=== PATIENT | female | born 1980 | race Hispanic/Latino ===

== ENCOUNTER 2016-08-15 13:28 | Outpatient (CLI) | payer MEDICAID ==
--- NOTE | 2016-08-15 15:22 | Mammography Report ---
LEFT DIGITAL SCREENING MAMMOGRAM with CAD: 08/15/16 13:28:00 CLINICAL: Routine screening. Personal history of breast cancer status post right mastectomy in 2016. She is in the second trimester of . COMPARISON:08/23/15 FINDINGS: Two routine views of the left breast performed after her abdomen was shielded with lead. The breast is heterogeneously dense, which may obscure small masses.No mass, architectural distortion or suspicious calcifications. IMPRESSION: No mammographic evidence of malignancy. BI-RADS CATEGORY: 1 - - Negative RECOMMENDATION: Routine mammographic screening in one year. ACR BI-RADS MAMMOGRAPHIC CODES: 0 = Needs additional imaging evaluation; 1 = Negative; 2 = Benign; 3 = Probably benign; 4 = Suspicious; 5 = Malignant; 6 = Known biopsy-proven malignancy COMMENT: 1. Dense breast tissue, i.e., adenosis, fibrocystic changes, etc., may obscure an underlying neoplasm. 2. Approximately 10% of cancers are not detected with mammography. 3. A negative mammography report should not delay biopsy if a clinically suspicious mass is present. COMMENT: Patient follow-up letters are generated via our [employer] application.
== END 2016-08-15 13:29 | disposition home or self-care (01) ==
LOC: SPVWC 13:28
PROVIDERS: ATTEND Surgery
DX: R92.8 Other abnormal and inconclusive findings on diagnostic imaging of breast (principal); Z85.3 Personal history of malignant neoplasm of breast; Z90.11 Acquired absence of right breast and nipple
CPT/HCPCS: G0206-LT

== ENCOUNTER 2016-10-24 12:30 | Outpatient (CLI) | payer MEDICAID ==
--- NOTE | 2016-10-24 13:39 | Ultrasound Report ---
LEFT BREAST ULTRASOUND: 10/24/16 12:30:00 CLINICAL: Status post right mastectomy in 2016. A recent negative mammogram but new palpable lumps in the left axilla. COMPARISON: 08/15/16 mammogram. FINDINGS: Ultrasound of the left breast(including all four quadrants and the retroareolar area) was performed and demonstrated no mass, cyst or suspicious shadowing. Ultrasound of the left axilla demonstrated three enlarged palpable lymph nodes measuring 3.0 x 1.5 x 3.2 cm, 1.7 x 1.2 x 1.6 cm and 2.8 x 1.2 x 2.5 cm. All three a heterogeneously hyperechoic with no thickened cortex. There were not apparent on the recent mammogram. IMPRESSION: Probably benign enlarged left axillary lymph nodes based on the absence of cortical thickening and an abundance of fat. BI-RADS 3 - - Probably Benign RECOMMENDATION: Six month followup left axillary ultrasound. However, consider ultrasound-guided needle biopsy to confirm benignity.
== END 2016-10-24 12:31 | disposition home or self-care (01) ==
LOC: SPVWC 12:30
PROVIDERS: ATTEND Surgery
DX: C50.411 Malignant neoplasm of upper-outer quadrant of right female breast (principal); N63 Unspecified lump in breast; Z90.11 Acquired absence of right breast and nipple

== ENCOUNTER 2016-11-01 13:12 | Outpatient (CLI) | payer MEDICAID ==
--- NOTE | 2016-11-01 14:21 | Ultrasound Report ---
ULTRASOUND GUIDED NEEDLE CORE BIOPSY OF A LEFT AXILLARY LYMPH NODE WITH CLIP PLACEMENT : 11/01/16 13:12:00 CLINICAL: History of right breast cancer status post right mastectomy. Enlarged left axillary lymph nodes. FINDINGS: The procedure was explained to the patient and informed consent was obtained. Ultrasound demonstrated several large lymph nodes are with relatively large echogenic fatty centers. The skin in the axilla was prepped with Betadine and anesthetized with 1% lidocaine. Ultrasound guided needle core biopsy of the thickest portion of the lymph node was performed through a small dermatotomy using an 18-gauge Achieve biopsy device. 3 samples were obtained and placed in formalin. A clip was deployed within the lymph node. Hemostasis was achieved with minimal pressure and a sterile dressing was applied. The patient tolerated the procedure well and there were no apparent complications. She was discharged in good condition and was given instructions for wound care and followup. IMPRESSION: Uncomplicated ultrasound-guided needle core biopsy of a left axillary lymph node with a placement of a localizer clip.
== END 2016-11-01 13:13 | disposition home or self-care (01) ==
LOC: SPVWC 13:12
PROVIDERS: ATTEND Surgery
DX: N63 Unspecified lump in breast (principal); R59.9 Enlarged lymph nodes, unspecified; Z85.3 Personal history of malignant neoplasm of breast; Z90.11 Acquired absence of right breast and nipple
CPT/HCPCS: 38505; 76942; 88305; A4648

== ENCOUNTER 2017-08-15 09:40 | Outpatient (CLI) | payer MEDICAID ==
--- NOTE | 2017-08-15 10:22 | Mammography Report ---
LEFT DIGITAL DIAGNOSTIC MAMMOGRAM WITH CAD: 08/15/17 09:40:00 CLINICAL: Breast cancer survivor status post right mastectomy. COMPARISON:08/15/16 FINDINGS: The breast is mostly fatty.No mass, architectural distortion or suspicious calcifications. IMPRESSION: No mammographic evidence of malignancy. BI-RADS CATEGORY: 1 -- Negative RECOMMENDATION: Routine mammographic screening in one year. ACR BI-RADS MAMMOGRAPHIC CODES: 0 = Needs additional imaging evaluation; 1 = Negative; 2 = Benign; 3 = Probably benign; 4 = Suspicious; 5 = Malignant; 6 = Known biopsy-proven malignancy COMMENT: 1. Dense breast tissue, i.e., adenosis, fibrocystic changes, etc., may obscure an underlying neoplasm. 2. Approximately 10% of cancers are not detected with mammography. 3. A negative mammography report should not delay biopsy if a clinically suspicious mass is present. COMMENT: Patient follow-up letters are generated via our [employer] application.
== END 2017-08-15 09:41 | disposition home or self-care (01) ==
LOC: SPVWC 09:40
PROVIDERS: ATTEND Surgery
DX: R92.8 Other abnormal and inconclusive findings on diagnostic imaging of breast (principal); Z85.3 Personal history of malignant neoplasm of breast; Z90.11 Acquired absence of right breast and nipple